=== PATIENT | male | born 1985 | race Caucasian/White ===

== ENCOUNTER 2022-05-19 11:00 | Emergency (ER) | payer OTHER ==
[~2022-05-19] VITALS: Ht 167.6 cm; Wt 102.1 kg
--- NOTE | 2022-05-19 11:20 | NUR ---
Pt arrived with c/o L Big Toe Avulsion d/t accidental crushed injury. CMS and V/S WNL. Seen by Dr. Huffman for MSE.
[2022-05-19] MEDS ORDERED: TDAP DIPH,PERTUSS,TET VAC/PF 0.5 ML DISP.SYRIN IM ONE (11:30)
[2022-05-19] MEDS ORDERED: LIDOCAINE HCL 1% 20 ML VIAL IJ ONE (11:30)
[2022-05-19] MEDS ORDERED: ACETAMINOPHEN ES 500 MG TABLET PO ONE (11:30)
[2022-05-19] MEDS ORDERED: CEPH500C2 PO (13:36)
--- NOTE | 2022-05-19 14:00 | NUR ---
L Big Toe, bandaged, well tolerated by the pt, dressing change instructions provided, pt acknowledged information. Discharged to home in stable condition. Written and verbal after care instructions given. Pt verbalizes understanding of instructions. Stressed follow up or return to ER for worsening s/s.
[2022-05-19 14:03] VITALS: BP 128/91
== END 2022-05-19 14:06 | disposition home or self-care (01) ==
LOC: ER 11:00
DX: S92.422B Displaced fracture of distal phalanx of left great toe, initial encounter for open fracture (principal); W20.8XXA Other cause of strike by thrown, projected or falling object, initial encounter; Y92.89 Other specified places as the place of occurrence of the external cause
CPT/HCPCS: 11760; 99283; 73630; 90715; 90471; J3490; A4663; A9150